=== PATIENT | male | born 1985 ===

== ENCOUNTER 2018-08-31 14:29 | Emergency (ER) | payer SELFPAY ==
--- NOTE | 2018-08-31 16:14 | ED PDOC ---
HPI: Back Additional Complaint(s): 33 yo male patient w/o PMH presents to the ED c/o low back pain since 3 months ago. Patient denies any h/o recent trauma or injury. Patient stated he went to the clinic for an appt today but he could not see the Doctor so decided to come to the ED. He describes pain as sharp, 10/10, no radiated to legs, taking tylenol but not relief. No alleviating or aggravating factors. Otherwise he denies tingling, numbness, weakness in LE, no incontinence, frequency or retention, no changes in BM. PCP at [facility] <Todd Tineo - Last Filed: 08/31/18 17:00> <Reji Merrill - Last Filed: 09/05/18 12:39> Time Seen by Provider: 08/31/18 16:08 Chief Complaint (Nursing): Back Pain Past Medical History Vital Signs: Last Vital Signs Temp 98.3 F 08/31/18 15:26 Pulse 66 08/31/18 15:26 Resp 18 08/31/18 15:26 BP 110/70 08/31/18 15:26 Pulse Ox 100 08/31/18 15:26 - Family History Family History: States: No Known Family Hx <Todd Tineo - Last Filed: 08/31/18 17:00> Reviewed: Historical Data, Nursing Documentation, Vital Signs Vital Signs: Last Vital Signs Temp 98.6 F 08/31/18 17:04 Pulse 78 08/31/18 17:04 Resp 20 08/31/18 17:04 BP 120/70 08/31/18 17:04 Pulse Ox 98 08/31/18 17:04 - Medical History PMH: No Chronic Diseases - Surgical History Surgical History: No Surg Hx <Reji Merrill - Last Filed: 09/05/18 12:39> - Home Medications Home Medications: Ambulatory Orders Medication Instructions Recorded Cyclobenzaprine [Cyclobenzaprine 10 mg PO Q8 #20 tab 08/31/18 HCl] Ibuprofen [Ibu] 400 mg PO Q8 #30 tablet 08/31/18 - Allergies Allergies/Adverse Reactions: Allergies Allergy/AdvReac Type Severity Reaction Status Date / Time No Known Allergies Allergy Verified 08/31/18 15:24 Supervising Attending Note - Supervising Attending Note The Documented history was done by the: Physician Dredgemaster, Attending Physician The documented physical exam was done by the: Physician Dredgemaster, Attending Physician The documented procedures were done by the: Physician Dredgemaster, Attending Physician - Attestation: I have personally seen and examined this patient.: Yes I have fully participated in the care of the patient.: Yes I have reviewed all pertinent clinical information: Yes <Reji Merrill - Last Filed: 09/05/18 12:39> Review of Systems Constitutional: Negative for: Fever, Weakness Cardiovascular: Negative for: Chest Pain, Palpitations Respiratory: Negative for: Cough, Shortness of Breath Gastrointestinal: Negative for: Vomiting, Abdominal Pain, Diarrhea Genitourinary Male: Negative for: Dysuria, Frequency, Incontinence Musculoskeletal: Positive for: Back Pain. Negative for: Neck Pain, Shoulder Pain, Arm Pain Neurological: Negative for: Weakness, Numbness <Todd Tineo - Last Filed: 08/31/18 17:00> ROS Statement: Except As Marked, All Systems Reviewed And Found Negative <Reji Merrill - Last Filed: 09/05/18 12:39> Physical Exam - Reviewed Nursing Documentation Reviewed: Yes Vital Signs Reviewed: Yes - Physical Exam Appears: Positive for: No Acute Distress Head Exam: Positive for: NORMAL INSPECTION Skin: Positive for: Warm, Dry Eye Exam: Positive for: EOMI, PERRL Cardiovascular/Chest: Positive for: Regular Rate, Rhythm. Negative for: Murmur, Tachycardia Respiratory: Positive for: Normal Breath Sounds. Negative for: Rales, Rhonchi, Wheezing Gastrointestinal/Abdominal: Positive for: Bowel Sounds, Soft. Negative for: Tenderness, Distended Back: Negative for: L CVA Tenderness, R CVA Tenderness, Vertebral Tenderness, Decreased ROM Extremity: Positive for: Normal ROM. 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 Will discharge to home <Todd Tineo - Last Filed: 08/31/18 17:00> Disposition - Patient ED Disposition Is Patient to be Admitted: No Counseled Patient/Family Regarding: Diagnosis, Need For Followup - Disposition Disposition: Routine/Home Disposition Time: 16:59 <Todd Tineo - Last Filed: 08/31/18 17:00> <Reji Merrill - Last Filed: 09/05/18 12:39> - Clinical Impression Clinical Impression: Back strain, Lumbar strain - Disposition Referrals: [facility] [place] [Outside] Condition: IMPROVED Additional Instructions: Return to ED if worsening or new sx in 24 hrs F/u appt at Clinic on 10/02/18 Prescriptions: Cyclobenzaprine [Cyclobenzaprine HCl] 10 mg PO Q8 #20 tab Ibuprofen [Ibu] 400 mg PO Q8 #30 tablet Instructions: Muscle Strain (DC), Lumbar Muscle Strain (DC) Forms: [employer] (Azerbaijani) Print Language: ARMENIAN
[2018-08-31 17:05] VITALS: BP 120/70; PULSE 78; RESP 20; TEMP 98.6; O2SAT 98
== END 2018-08-31 17:05 | disposition home or self-care (01) ==
LOC: H.ER 14:29
DX: S39.012A Strain of muscle, fascia and tendon of lower back, initial encounter (principal); X58.XXXA Exposure to other specified factors, initial encounter; Y92.89 Other specified places as the place of occurrence of the external cause

== ENCOUNTER 2018-09-20 22:11 | Emergency (ER) | payer SELFPAY ==
[2018-09-20 22:20] VITALS: RESP 16
[2018-09-20] MEDS ORDERED: Sodium Chloride 0.9% 1,000 ML IV STA (23:01)
[2018-09-20] MEDS ORDERED: Atropine-Diphenoxylate 0.025-2.5 mg Tab PO STA (23:01)
[2018-09-20 23:43] LABS: BASO % 0.4 % (0.0-2.0); EOS # 0.2 K/uL (0.0-0.7); EOS % 2.7 % (0.0-4.0); LYMPH # 2.5 K/uL (1.0-4.3); LYMPH % 39.2 % (20.0-40.0); MEAN CELL VOLUME 90.6 fl (80.0-94.0); MEAN CORPUSCULAR HEMOGLOBIN 30.6 pg (27.0-31.0); MEAN CORPUSCULAR HGB CONC 33.8 g/dL (33.0-37.0); MEAN PLATELET VOLUME 8.2 fl (7.2-11.7); MONO # 0.6 K/uL (0.0-0.8); MONO % 8.8 % (0.0-10.0); NEUT # 3.2 K/uL (1.8-7.0); NEUT % 48.9 % (50.0-75.0); NRBC % 0.1 % (0.0-0.0); RBC 4.89 Mil/uL (4.40-5.90); RED CELL DISTRIBUTION WIDTH 12.8 % (11.5-14.5); WHITE BLOOD COUNT 6.5 K/uL (4.8-10.8)
[2018-09-20 23:48] LABS: ALB/GLOB RATIO 1.4 (1.0-2.1); ALT/SGPT 37 U/L (21-72); AST/SGOT 26 U/L (17-59); BLOOD UREA NITROGEN 13 mg/dl (9-20); CALCIUM 8.7 mg/dL (8.4-10.2); GFR NON-AFRICAN AMERICAN > 60; LIPASE 59 U/L (23-300)
--- NOTE | 2018-09-20 23:53 | ED PDOC ---
HPI:Nausea, Vomiting, Diarrhea Time Seen by Provider: 09/20/18 22:24 Chief Complaint (Nursing): Abdominal Pain Chief Complaint (Provider): diarrhea History Per: Patient History/Exam Limitations: no limitations Onset/Duration Of Symptoms: Days (3), Intermittent Episodes Quality Of Discomfort: Cramping, "Pain" Associated Symptoms: Chills, Nausea, Diarrhea, Loss Of Appetite. denies: Fever, Vomiting, Urinary Symptoms Past Medical History Reviewed: Historical Data, Nursing Documentation, Vital Signs Vital Signs: Last Vital Signs Temp 97.8 F 09/20/18 22:18 Pulse 66 09/20/18 22:18 Resp 16 09/20/18 22:18 BP 117/85 09/20/18 22:18 Pulse Ox 97 09/20/18 22:18 - Medical History PMH: No Chronic Diseases Denies: Chronic Kidney Disease - Surgical History Other surgeries: sinus surgery - Family History Family History: States: No Known Family Hx - Social History Current smoker - smoking cessation education provided: No (quit 1 month ago) Drugs: Denies - Immunization History Hx Tetanus Toxoid Vaccination: No Hx Influenza Vaccination: No Hx Pneumococcal Vaccination: No - Home Medications Home Medications: Ambulatory Orders Medication Instructions Recorded Cyclobenzaprine [Cyclobenzaprine 10 mg PO Q8 #20 tab 08/31/18 HCl] Ibuprofen [Ibu] 400 mg PO Q8 #30 tablet 08/31/18 Atropine/Diphenoxylate [Lonox 2 tab PO QID PRN #30 tab 09/20/18 0.025 MG-2.5 MG] Ciprofloxacin [Cipro] 1 tab PO BID #14 tab 09/20/18 Dicyclomine [Bentyl] 20 mg PO QID PRN #20 tab 09/20/18 Saccharomyces Boulardi [Florastor] 500 mg PO BID #28 cap 09/20/18 - Allergies Allergies/Adverse Reactions: Allergies Allergy/AdvReac Type Severity Reaction Status Date / Time No Known Allergies Allergy Verified 08/31/18 15:24 Review of Systems ROS Statement: Except As Marked, All Systems Reviewed And Found Negative (and as per HPI) Gastrointestinal: Positive for: Nausea, Abdominal Pain, Diarrhea. Negative for: Vomiting, Constipation, Melena, Hematochezia, Hematemesis Physical Exam - Reviewed Nursing Documentation Reviewed: Yes Vital Signs Reviewed: Yes - Physical Exam Appears: Positive for: Non-toxic, No Acute Distress Head Exam: Positive for: ATRAUMATIC, NORMOCEPHALIC Skin: Positive for: Warm, Dry Eye Exam: Positive for: EOMI, PERRL ENT: Negative for: Pharyngeal Erythema, Tonsillar Exudate Neck: Positive for: Painless ROM, Supple Cardiovascular/Chest: Positive for: Regular Rate, Rhythm. Negative for: Murmur Respiratory: Positive for: Normal Breath Sounds. Negative for: Respiratory Distress Gastrointestinal/Abdominal: Positive for: Soft. Negative for: Tenderness, Mass, Distended, Guarding Back: Positive for: Normal Inspection. Negative for: Decreased ROM Extremity: Positive for: Normal ROM. Negative for: Deformity Lymphatic: Negative for: Adenopathy Neurological/Psych: Positive for: Awake, Alert. Negative for: Motor/Sensory Deficits - Laboratory Results Result Diagrams: 09/20/18 23:18 09/20/18 23:18 Lab Results: Total Bilirubin 0.4 mg/dl (0.2-1.3) 09/20/18 23:18 AST 26 U/L (17-59) 09/20/18 23:18 ALT 37 U/L (21-72) 09/20/18 23:18 Alkaline Phosphatase 58 U/L (38-126) 09/20/18 23:18 Total Protein 6.8 G/DL (6.3-8.2) 09/20/18 23:18 Albumin 4.0 g/dL (3.5-5.0) 09/20/18 23:18 Globulin 2.8 gm/dL (2.2-3.9) 09/20/18 23:18 Albumin/Globulin Ratio 1.4 (1.0-2.1) 09/20/18 23:18 Lipase 59 U/L (23-300) 09/20/18 23:18 Labs unremarkable - ECG O2 Sat by Pulse Oximetry: 97 Pulse Ox Interpretation: Normal Disposition - Clinical Impression Clinical Impression: Diarrhea - Disposition Referrals: [facility] [place] [Outside] Disposition: Routine/Home Disposition Time: 23:57 Condition: STABLE Prescriptions: Atropine/Diphenoxylate [Lonox 0.025 MG-2.5 MG] 2 tab PO QID PRN #30 tab PRN Reason: Diarrhea Ciprofloxacin [Cipro] 1 tab PO BID #14 tab Dicyclomine [Bentyl] 20 mg PO QID PRN #20 tab PRN Reason: abdominal pain Saccharomyces Boangeldi [Florastor] 500 mg PO BID #28 cap Instructions: Diarrhea and Traveler's Diarrhea, Adult (DC) Print Language: YI
[2018-09-21] MEDS ORDERED: Atropine-Diphenoxylate 0.025-2.5 mg Tab ONE (00:10)
[2018-09-21 00:23] VITALS: BP 119/65; PULSE 64; TEMP 98.1
[2018-09-23 18:59] VITALS: O2SAT 97
== END 2018-09-21 00:23 | disposition home or self-care (01) ==
LOC: H.ER 22:11
DX: R19.7 Diarrhea, unspecified (principal)
CPT/HCPCS: 80053; 83605; 83690; 83735; 84100; 85025; 96374; 99283; J2405; J7030

== ENCOUNTER 2018-10-12 16:20 | Emergency (ER) | payer SELFPAY ==
[2018-10-12 18:51] VITALS: RESP 18
--- NOTE | 2018-10-12 19:55 | ED PDOC ---
HPI: General Adult Time Seen by Provider: 10/12/18 18:43 Chief Complaint (Nursing): Cough, Cold, Congestion Chief Complaint (Provider): Throat Pain, Congestion, Body Aches History Per: Patient History/Exam Limitations: no limitations Onset/Duration Of Symptoms: Days (x3) Current Symptoms Are (Timing): Still Present Additional Complaint(s): 33 year old male presents to the ED for evaluation of throat pain which radiates to her ears, nasal congestion, and body aches for the past three days, worsening since onset. Patient has been using Tylenol at home, last dose around 1400 today. Otherwise, denies sick contact, recent travel, cough, vomiting, nausea, rash, and neck pain / stiffness. Past Medical History Reviewed: Historical Data, Nursing Documentation, Vital Signs Vital Signs: Last Vital Signs Temp 98.9 F 10/12/18 18:50 Pulse 66 10/12/18 18:50 Resp 18 10/12/18 18:50 BP 115/77 10/12/18 18:50 Pulse Ox 100 10/12/18 18:50 Primary Care Provider: FAMILY PROVIDER,NO (cannot remember name) - Medical History PMH: No Chronic Diseases Denies: Chronic Kidney Disease - Surgical History Surgical History: No Surg Hx - Family History Family History: States: Unknown Family Hx - Social History Current smoker - smoking cessation education provided: No - Immunization History Hx Tetanus Toxoid Vaccination: No Hx Influenza Vaccination: No Hx Pneumococcal Vaccination: No - Home Medications Home Medications: Ambulatory Orders Medication Instructions Recorded Cyclobenzaprine [Cyclobenzaprine 10 mg PO Q8 #20 tab 08/31/18 HCl] Ibuprofen [Ibu] 400 mg PO Q8 #30 tablet 08/31/18 Atropine/Diphenoxylate [Lonox 2 tab PO QID PRN #30 tab 09/20/18 0.025 MG-2.5 MG] Ciprofloxacin [Cipro] 1 tab PO BID #14 tab 09/20/18 Dicyclomine [Bentyl] 20 mg PO QID PRN #20 tab 09/20/18 Saccharomyces Boulardi [Florastor] 500 mg PO BID #28 cap 09/20/18 Amoxicillin 875 mg PO BID #14 tab 10/12/18 Naproxen [Naprosyn] 500 mg PO BID PRN #20 tablet 10/12/18 - Allergies Allergies/Adverse Reactions: Allergies Allergy/AdvReac Type Severity Reaction Status Date / Time No Known Allergies Allergy Verified 10/12/18 16:56 Review of Systems ROS Statement: Except As Marked, All Systems Reviewed And Found Negative Constitutional: Positive for: Other (body aches) ENT: Positive for: Nose Congestion, Throat Pain (radiating to ears) Respiratory: Negative for: Cough Gastrointestinal: Negative for: Nausea, Vomiting Musculoskeletal: Negative for: Neck Pain (or stiffness) Skin: Negative for: Rash Physical Exam - Reviewed Nursing Documentation Reviewed: Yes Vital Signs Reviewed: Yes - Physical Exam Comments: GENERAL APPEARANCE: Patient is awake, alert, oriented x 3, in no acute distress. Resting comfortably SKIN: Warm, dry EYES: normal inspection ENMT: Bilateral TMs: (-) bulging, (-) erythema. Pharynx: (+) bilateral erythema, (+) bilateral exudates, (+) bilateral hypertrophy NECK: Soft, full ROM, (-) tenderness CHEST AND RESPIRATORY: (-) rhonchi, (-) rales, (-) wheezes; breath sounds equal bilaterally. HEART AND CARDIOVASCULAR: RRR, (-) irregularity ABDOMEN AND GI: Soft; (-) tenderness. NEURO AND PSYCH: Mental status as above. - ECG O2 Sat by Pulse Oximetry: 100 (RA) Pulse Ox Interpretation: Normal Medical Decision Making Medical Decision Making: Initial Impression: pharyngitis, tonsillitis Time: 1938 Initial Plan: --Amoxicillin 500mg PO --Ibuprofen 600mg PO --Throat culture --Rapid strep --Reevaluation 2114 Rapid Strep: negative On re-evaluation, patient reports improvement of symptoms. On exam, patient remains AAOx3, in no acute distress. Vitals stable. Lab/Diagnostic results d/w the patient in great detail. Diagnosis of pharyngitis /tonsillitis d/w the patient. Based on history, exam and diagnostic results, plan will be for outpatient follow up with PMD/clinic. Patient instructed to follow-up with pmd / referral provided / the clinic in 1- 2 days without fail. Advised to take medication as prescribed. Return to the emergency room at any time for any new or worsening symptoms. Patient states he fully agrees with and understands discharge instructions. States that he agrees with the plan and disposition. Verbalized and repeated discharge instructions and plan. I have given the patient opportunity to ask any additional questions. Scribe Attestation: Documented by Josselyn eTrry, acting as a scribe for Jessica Hong PA-C. Provider Scribe Attestation: All medical record entries made by the Scribe were at my direction and personally dictated by me. I have reviewed the chart and agree that the record accurately reflects my personal performance of the history, physical exam, medical decision making, and the department course for this patient. I have also personally directed, reviewed, and agree with the discharge instructions and disposition. Disposition - Clinical Impression Clinical Impression: Tonsillitis, Pharyngitis - Patient ED Disposition Is Patient to be Admitted: No Counseled Patient/Family Regarding: Studies Performed, Diagnosis, Need For Followup, Rx Given - Disposition Referrals: Reji Martin MD [Staff Provider] - primary, doctor [Other] Disposition: Routine/Home Disposition Time: 21:20 Condition: STABLE Additional Instructions: La atencin mdica de emergencia que recibi hoy se dirigi a xander sntomas agudos. Si le recetaron algn medicamento, llnelo y tmelo segn las indicaciones. Los sntomas pueden tardar varios seo en resolverse. Regrese al Departamento de Emergencias si xander sntomas empeoran, no mejoran o si tiene otros problemas. Comunquese con barr mdico dentro de 2 seo para xochilt nueva evaluacin y dagmar un seguimiento o llame a gerber de los mdicos / clnicas a los que rooney sido referido y que figuran en el formulario de Informacin de visita al paciente que se incluye en barr paquete de andrea. Lleve todos los documentos que recibi al momento del andrea junto con los medicamentos que est tomando para barr visita de seguimiento. Nuestro tratamiento no puede reemplazar la atencin mdica continua por parte de un proveedor de atencin primaria (PCP) fuera del departamento de emergencias. Prescriptions: Amoxicillin 875 mg PO BID #14 tab Naproxen [Naprosyn] 500 mg PO BID PRN #20 tablet PRN Reason: Pain, Moderate (4-7) Instructions: Sore Throat in Adults, Bacterial Upper Respiratory Infection, Adult Forms: [employer] (Yi) Print Language: BHUTANESE - POA Present On Arrival: None Results - Lab Results Lab Results: 10/12/18 20:39 Grp A Beta Strep Ag Negative
[2018-10-12 21:43] VITALS: BP 122/70; PULSE 81; TEMP 98; O2SAT 99
== END 2018-10-12 21:42 | disposition home or self-care (01) ==
LOC: H.ER 16:20
DX: J03.90 Acute tonsillitis, unspecified (principal); J02.9 Acute pharyngitis, unspecified

== ENCOUNTER 2018-10-20 17:23 | Emergency (ER) | payer SELFPAY ==
[2018-10-20 19:24] VITALS: TEMP 98.5
--- NOTE | 2018-10-20 21:38 | ED PDOC ---
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 Patient states he has a history of hemorrhoids; states yesterday he noticed swelling after straining to have a bowel movement. Patient states he has been using Procto-anaya prescribed from previous flare up, which has been helping with pain. Patient denies fever, nausea/vomiting, abdominal pain, rectal bleeding. PMD: [facility] [address] Past Medical History Reviewed: Historical Data, Nursing Documentation, Vital Signs Vital Signs: Last Vital Signs Temp 98.5 F 10/20/18 19:24 Pulse 80 10/20/18 19:24 Resp 16 10/20/18 19:24 BP 98/52 L 10/20/18 19:24 Pulse Ox 100 10/20/18 19:24 Primary Care Provider: FAMILY PROVIDER,NO - Medical History PMH: No Chronic Diseases Denies: Chronic Kidney Disease - Surgical History Surgical History: No Surg Hx - Family History Family History: States: No Known Family Hx - Living Arrangements Living Arrangements: Alone - Immunization History Hx Tetanus Toxoid Vaccination: No Hx Influenza Vaccination: No Hx Pneumococcal Vaccination: No - Home Medications Home Medications: Ambulatory Orders Medication Instructions Recorded Cyclobenzaprine [Cyclobenzaprine 10 mg PO Q8 #20 tab 08/31/18 HCl] Ibuprofen [Ibu] 400 mg PO Q8 #30 tablet 08/31/18 Atropine/Diphenoxylate [Lonox 2 tab PO QID PRN #30 tab 09/20/18 0.025 MG-2.5 MG] Ciprofloxacin [Cipro] 1 tab PO BID #14 tab 09/20/18 Dicyclomine [Bentyl] 20 mg PO QID PRN #20 tab 09/20/18 Saccharomyces Boulardi [Florastor] 500 mg PO BID #28 cap 09/20/18 Amoxicillin 875 mg PO BID #14 tab 10/12/18 Naproxen [Naprosyn] 500 mg PO BID PRN #20 tablet 10/12/18 Docusate Sodium [Colace] 100 mg PO DAILY #20 capsule 10/20/18 Naproxen [Naprosyn] 500 mg PO Q12 PRN #14 tablet 10/20/18 - Allergies Allergies/Adverse Reactions: Allergies Allergy/AdvReac Type Severity Reaction Status Date / Time No Known Allergies Allergy Verified 10/12/18 16:56 Review of Systems ROS Statement: Except As Marked, All Systems Reviewed And Found Negative Gastrointestinal: Positive for: Rectal Pain Physical Exam - Reviewed Nursing Documentation Reviewed: Yes Vital Signs Reviewed: Yes - Physical Exam Appears: Positive for: Well, Non-toxic, No Acute Distress Cardiovascular/Chest: Positive for: Regular Rate, Rhythm Respiratory: Positive for: Normal Breath Sounds Gastrointestinal/Abdominal: Positive for: Normal Exam, Bowel Sounds, Soft. Negative for: Tenderness Rectal: Positive for: Hemorrhoids (pink hemorrhoid 11:00 position; mild tenderness. 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 INcrease fluid intake Follow up PMD for surgery referral Return precautions given Disposition - Clinical Impression Clinical Impression: Hemorrhoid - Patient ED Disposition Is Patient to be Admitted: No Counseled Patient/Family Regarding: Diagnosis, Need For Followup, Rx Given - Disposition Disposition: Routine/Home Disposition Time: 21:39 Condition: IMPROVED Prescriptions: Docusate Sodium [Colace] 100 mg PO DAILY #20 capsule Naproxen [Naprosyn] 500 mg PO Q12 PRN #14 tablet PRN Reason: Pain, Moderate (4-7) Instructions: Hemorrhoids, High Fiber Diet Print Language: DOMINICAN
[2018-10-20 22:02] VITALS: BP 115/73; PULSE 68; RESP 18; O2SAT 99
== END 2018-10-20 22:06 | disposition home or self-care (01) ==
LOC: H.ER 17:23
DX: K64.9 Unspecified hemorrhoids (principal)